=== PATIENT | female | born 1985 | race Caucasian/White ===

== ENCOUNTER → 2024-04-11 11:39 | Emergency (ER) | payer SELFPAY ==
[2024-04-11 11:41] VITALS: BP 156/93
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
== END | disposition home or self-care (01) ==
LOC: EMR 11:39
PROVIDERS: EMERGENCY PHYSICIAN Emergency Medicine; FAMILY PHYSICIAN Nurse Practitioner Family
DX: S62.637A Displaced fracture of distal phalanx of left little finger, initial encounter for closed fracture (principal); M79.602 Pain in left arm; V49.40XA Driver injured in collision with unspecified motor vehicles in traffic accident, initial encounter; Y92.410 Unspecified street and highway as the place of occurrence of the external cause; I10 Essential (primary) hypertension
CPT/HCPCS: 99283; 29130; 73090; 73130